=== PATIENT | female | born 1985 | race Caucasian/White ===

== ENCOUNTER 2020-11-17 15:00 | Emergency (ER) | payer MEDICAID, OTHER ==
[2020-11-17 15:25] VITALS: RESP 18
[2020-11-17 16:12] LABS: Basophils # (A) 0.1 k/uL (0-0.2); Basophils % (A) 1 %; Eosinophils % (A) 14 %; HCT 40.4 % (34.0-46.0); HGB 13.1 gm/dL (11.4-16.0); Lymphocytes # (A) 1.9 k/uL (1.0-4.8); Lymphocytes % (A) 28 %; MCH 29.7 pg (25.0-35.0); MCHC 32.3 g/dL (31.0-37.0); MCV 91.9 fL (80.0-100.0); Monocytes # (A) 0.3 k/uL (0-1.0); Monocytes % (A) 5 %; Neutrophils # (A) 3.4 k/uL (1.3-7.7); Neutrophils % (A) 51 %; Platelet Count 304 k/uL (150-450); Poikilocytosis Slight; WBC 6.8 k/uL (3.8-10.6)
[2020-11-17 16:19] LABS: ALT 13 U/L (4-34); AST 19 U/L (14-36); African American GFR (CKD) >90 (>60 ml/min/1.73 sqM); Albumin 3.6 g/dL (3.5-5.0); Alkaline Phosphatase 107 U/L (38-126); Anion Gap 6 mmol/L; Blood Urea Nitrogen 12 mg/dL (7-17); Calcium 8.7 mg/dL (8.4-10.2); Carbon Dioxide 23 mmol/L (22-30); Chloride 108 mmol/L (98-107); Glucose 95 mg/dL (74-99); Non-African American GFR(CKD) >90 (>60 ml/min/1.73 sqM); Potassium 4.1 mmol/L (3.5-5.1); Sodium 137 mmol/L (137-145); Total Bilirubin 0.4 mg/dL (0.2-1.3); Total Protein 6.8 g/dL (6.3-8.2)
[2020-11-17] MEDS ORDERED: HYDROmorphone 1 MG/ML 1 ML SYRINGE IVP STA (17:01)
--- NOTE | 2020-11-17 17:10 | ED ---
General Adult HPI - General Chief complaint: Fall Stated complaint: Back Pain Time Seen by Provider: 11/17/20 15:20 Source: EMS Mode of arrival: EMS Limitations: no limitations - History of Present Illness Initial comments: 35-year-old female with past history of cervical fusion from C3 to C7 who presents emergency department with reported low back pain and inability to feel her lower extremities. Patient states that she fell last night and landed face first. States that she arched her back and since then has had some saddle anesthesia with inability to move her lower extremities. Also reports to lower extremity numbness. States that she has had some chronic numbness in her feet but that the numbness extending up into her calf and thighs is new. She admits to urinary retention. Denies any previous lower back surgeries. Dr. Connor is her surgeon - fushions were completed in 2017 and 2019. Denies fevers or chills. No nausea or vomiting. No chest pain or shortness of breath. No anterior abdominal pain. Denies concern for . No other alleviating, precipitating or modifying factors - Related Data Home Medications Medication Instructions Recorded Confirmed Carvedilol [Coreg] 25 mg PO BID 11/15/15 11/17/20 ALPRAZolam [Xanax] 1 mg PO BID@0900,1600 11/17/20 11/17/20 Atorvastatin [Lipitor] 40 mg PO DAILY 11/17/20 11/17/20 Cetirizine HCl [Zyrtec] 10 mg PO DAILY 11/17/20 11/17/20 FLUoxetine HCL [PROzac] 40 mg PO DAILY 11/17/20 11/17/20 Flovent (Unknown Dose) 1 puff INHALATION RT-BID 11/17/20 11/17/20 Gabapentin 300 mg PO DAILY PRN 11/17/20 11/17/20 Multivitamins, Thera [Multivitamin 1 tab PO BID 11/17/20 11/17/20 (formulary)] amLODIPine [Norvasc] 10 mg PO DAILY 11/17/20 11/17/20 Allergies Allergy/AdvReac Type Severity Reaction Status Date / Time No Known Allergies Allergy Verified 11/17/20 18:24 Review of Systems ROS Statement: Those systems with pertinent positive or pertinent negative responses have been documented in the HPI. ROS Other: All systems not noted in ROS Statement are negative. 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 Absent: scleral icterus, conjunctival injection, periorbital swelling ENT exam: Present: normal exam, mucous membranes moist Neck exam: Present: normal inspection. Absent: tenderness, meningismus, lymphadenopathy Respiratory exam: Present: normal lung sounds bilaterally. Absent: respiratory distress, wheezes, rales, rhonchi, stridor Cardiovascular Exam: Present: regular rate, normal rhythm, normal heart sounds. Absent: systolic murmur, diastolic murmur, rubs, gallop, clicks GI/Abdominal exam: Present: soft, normal bowel sounds. Absent: distended, tenderness, guarding, rebound, rigid Rectal exam: Present: normal inspection Extremities exam: Present: other (No effect against gravity b/l le. Can feel blunt sensation over the heel, lateral and dorsal aspects of the bilateral lower externally is however cannot feel 2 point discrimination. ). Absent: pedal edema, joint swelling Back exam: Present: normal inspection Neurological exam: Present: alert, oriented X3, CN II-XII intact Psychiatric exam: Present: normal affect, normal mood Skin exam: Present: warm, dry, intact, normal color. Absent: rash Course Vital Signs 11/17/20 11/17/20 15:19 19:35 Temperature 98.1 F 97.8 F Pulse Rate 79 71 Respiratory 18 18 Rate Blood Pressure 124/77 105/67 O2 Sat by Pulse 98 97 Oximetry Medical Decision Making - Medical Decision Making Upon arrival patient is placed into room 33. A thorough history and physical exam was performed. Patient admits that she can feel blunt touch however 2 point discrimination is not palpable. Patient will not move her lower extremities or provide any type of effort. Rectal exam is performed and appears intact. CT the patient's cervical, thoracic and lumbar spine is performed. Laboratory studies are reviewed and within normal limits. CT demonstrates multilevel cervical spine fusion no fracture. No significant abnormality seen in the thoracic and lumbar spine. Results are discussed patient. Due to the patient's reported symptoms of possible cauda equina I did recommend transfer to a facility capable of obtaining an MRI. Patient agreed to this,. Called and spoke with Dr. Espinoza at [facility] who accepted transfer. Patient will be sent EMS in stable condition. - Lab Data Result diagrams: 11/17/20 15:58 11/17/20 15:58 Lab Results 11/17/20 11/17/20 Range/Units 15:58 15:58 WBC 6.8 (3.8-10.6) k/uL RBC 4.40 (3.80-5.40) m/uL Hgb 13.1 (11.4-16.0) gm/dL Hct 40.4 (34.0-46.0) % MCV 91.9 (80.0-100.0) fL MCH 29.7 (25.0-35.0) pg MCHC 32.3 (31.0-37.0) g/dL RDW 15.0 (11.5-15.5) % Plt Count 304 (150-450) k/uL MPV 7.0 Neutrophils % 51 % Lymphocytes % 28 % Monocytes % 5 % Eosinophils % 14 % Basophils % 1 % Neutrophils # 3.4 (1.3-7.7) k/uL Lymphocytes # 1.9 (1.0-4.8) k/uL Monocytes # 0.3 (0-1.0) k/uL Eosinophils # 1.0 H (0-0.7) k/uL Basophils # 0.1 (0-0.2) k/uL Poikilocytosis Slight Sodium 137 (137-145) mmol/L Potassium 4.1 (3.5-5.1) mmol/L Chloride 108 H (98-107) mmol/L Carbon Dioxide 23 (22-30) mmol/L Anion Gap 6 mmol/L BUN 12 (7-17) mg/dL Creatinine 0.70 (0.52-1.04) mg/dL Est GFR (CKD-EPI)AfAm >90 (>60 ml/min/1.73 sqM) Est GFR (CKD-EPI)NonAf >90 (>60 ml/min/1.73 sqM) Glucose 95 (74-99) mg/dL Calcium 8.7 (8.4-10.2) mg/dL Total Bilirubin 0.4 (0.2-1.3) mg/dL AST 19 (14-36) U/L ALT 13 (4-34) U/L Alkaline Phosphatase 107 (38-126) U/L Total Protein 6.8 (6.3-8.2) g/dL Albumin 3.6 (3.5-5.0) g/dL Disposition Clinical Impression: Fall, Saddle anesthesia Disposition: OTHER INSTITUTION NOT DEFINED Condition: Stable Is patient prescribed a controlled substance at d/c from ED?: No Referrals: Smitha Tuttle MD [Primary Care Provider] - 1-2 days Time of Disposition: 17:58 - Out of Hospital Transfer - Req. Specs Out of Hospital Transfer - Requested Specifics: Other Emergency Center ([facility])
--- NOTE | 2020-11-17 17:17 | CT ---
EXAMINATION TYPE: CT CervThorLumbar spine wo con DATE OF EXAM: 11/17/2020 COMPARISON: None HISTORY: Inability to ambulate. CT DLP: 2997.6 mGycm Automated exposure control for dose reduction was used. Images obtained from the skull base to S1 vertebra without contrast. There is multilevel posterior fusion surgery and anterior fusion surgery in the cervical spine from C 3 to C7. Cervical vertebra show fairly normal alignment. There is slight widening of the disc space o n the posterior aspect of the C7-T1 disc. There is no compression fracture. Thoracic and lumbar vertebra have fairly normal alignment. There is no compression fracture. There i s posterior endplate spur formation and calcification in the posterior longitudinal ligament at L1 to and T11-12. There is developmentally adequate spinal canal. There is no significant spinal stenosis. There is multilevel laminectomy defect in the mid and lower cervical spine. There is no thoracic par aspinal mass. I see no focal bone destruction. The sacroiliac joints appear intact. IMPRESSION: Multilevel cervical spine fusion surgery. Surgery is a change compared to cervical spine x-ray of . No fracture. There is slight flexion at the cervicothoracic junction with widening of the disc space at C7-T1 that could relate to some ligamentous instability. Comparison with an recent previous exam would be helpf ul. No significant abnormalities seen of the remainder of the thoracic and lumbar spine.
[2020-11-17 19:35] VITALS: BP 105/67; PULSE 71; TEMP 97.8
== END 2020-11-17 19:51 | disposition other institution (70) ==
LOC: EC 15:00
DX: R20.0 Anesthesia of skin (principal); J45.909 Unspecified asthma, uncomplicated; E78.5 Hyperlipidemia, unspecified; I10 Essential (primary) hypertension; Z87.891 Personal history of nicotine dependence; Z98.1 Arthrodesis status
CPT/HCPCS: 99285; 96374; 36415; 80053; 85025; 72128; 72125; 72131; J1170

== ENCOUNTER 2020-12-08 01:14 | Emergency (ER) | payer OTHER ==
[2020-12-08 01:24] VITALS: TEMP 97.8
[2020-12-08] MEDS ORDERED: SODIUM CHLORIDE 0.9% 1,000 ML IV STA (01:50)
[2020-12-08] MEDS ORDERED: MORPHINE SULFATE 4 MG/ML SYRINGE IVP STA (02:00)
[2020-12-08] MEDS ORDERED: CAFFEINE-SODIUM BENZOATE 1,000 MG in SODIUM CHLORIDE 0.9% 1,000 ML IVPB ONE (02:01)
--- NOTE | 2020-12-08 02:02 | ED ---
Headache HPI - General Chief Complaint: Headache Stated Complaint: Headache Time Seen by Provider: 12/08/20 01:47 Mode of arrival: EMS Limitations: no limitations - History of Present Illness Initial Comments: 35-year-old female presents to emergency department with a chief complaint of a headache. Patient reports 2 days ago she had a spinal tap performed at the [facility] for possible meningitis. Patient reports she was then discharged from the hospital and began to experience a headache that became significantly worse whenever she was in a sitting or standing position. States the pain is alleviated when laying flat. She denies any blurry vision, onset we akness or paresthesias. Patient states she had a spinal tap once before and she experienced a similar headache. She denies any nausea vomiting and diarrhea. Denies any chest pain or shortness of breath. - Related Data Home Medications Medication Instructions Recorded Confirmed Carvedilol [Coreg] 25 mg PO BID 11/15/15 11/17/20 ALPRAZolam [Xanax] 1 mg PO BID@0900,1600 11/17/20 11/17/20 Atorvastatin [Lipitor] 40 mg PO DAILY 11/17/20 11/17/20 Cetirizine HCl [Zyrtec] 10 mg PO DAILY 11/17/20 11/17/20 FLUoxetine HCL [PROzac] 40 mg PO DAILY 11/17/20 11/17/20 Flovent (Unknown Dose) 1 puff INHALATION RT-BID 11/17/20 11/17/20 Gabapentin 300 mg PO DAILY PRN 11/17/20 11/17/20 Multivitamins, Thera [Multivitamin 1 tab PO BID 11/17/20 11/17/20 (formulary)] amLODIPine [Norvasc] 10 mg PO DAILY 11/17/20 11/17/20 Allergies Allergy/AdvReac Type Severity Reaction Status Date / Time No Known Allergies Allergy Verified 12/08/20 01:24 Review of Systems ROS Statement: Those systems with pertinent positive or pertinent negative responses have been documented in the HPI. ROS Other: All systems not noted in ROS Statement are negative. 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 Absent: tenderness, lymphadenopathy Respiratory exam: Present: normal lung sounds bilaterally. Absent: respiratory distress, wheezes, rales Cardiovascular Exam: Present: regular rate, normal rhythm, normal heart sounds. Absent: systolic murmur Extremities exam: Present: normal inspection, full ROM, normal capillary refill Back exam: Present: normal inspection, full ROM. Absent: tenderness Neurological exam: Present: alert, oriented X3 Psychiatric exam: Present: normal affect, normal mood Skin exam: Present: warm, dry, intact, normal color Course Vital Signs 12/08/20 12/08/20 01:19 02:24 Temperature 97.8 F Pulse Rate 67 68 Respiratory 15 18 Rate Blood Pressure 120/70 123/78 O2 Sat by Pulse 95 97 Oximetry Medical Decision Making - Medical Decision Making 35-year-old female presents to emergency department with a chief complaint of a headache. On physical examination, no focal deficits. Patient was expressing a spinal headache. Patient was given morphine, IV fluids and caffeine. On reevaluation, she reports improvement in symptoms. Patient will be discharged home with outpatient follow-up. Case discussed with Dr. Fernandez - Lab Data Result diagrams: 12/08/20 01:56 12/08/20 01:56 Lab Results 12/08/20 12/08/20 Range/Units 01:56 01:56 WBC 5.3 (3.8-10.6) k/uL RBC 4.29 (3.80-5.40) m/uL Hgb 12.9 (11.4-16.0) gm/dL Hct 38.5 (34.0-46.0) % MCV 89.6 (80.0-100.0) fL MCH 30.1 (25.0-35.0) pg MCHC 33.6 (31.0-37.0) g/dL RDW 13.3 (11.5-15.5) % Plt Count 317 (150-450) k/uL MPV 6.7 Neutrophils % 42 % Lymphocytes % 31 % Monocytes % 6 % Eosinophils % 18 % Basophils % 1 % Neutrophils # 2.2 (1.3-7.7) k/uL Lymphocytes # 1.7 (1.0-4.8) k/uL Monocytes # 0.3 (0-1.0) k/uL Eosinophils # 0.9 H (0-0.7) k/uL Basophils # 0.1 (0-0.2) k/uL Sodium 137 (137-145) mmol/L Potassium 3.9 (3.5-5.1) mmol/L Chloride 106 (98-107) mmol/L Carbon Dioxide 22 (22-30) mmol/L Anion Gap 9 mmol/L BUN 11 (7-17) mg/dL Creatinine 0.61 (0.52-1.04) mg/dL Est GFR (CKD-EPI)AfAm >90 (>60 ml/min/1.73 sqM) Est GFR (CKD-EPI)NonAf >90 (>60 ml/min/1.73 sqM) Glucose 90 (74-99) mg/dL Calcium 9.3 (8.4-10.2) mg/dL Total Bilirubin 1.0 (0.2-1.3) mg/dL AST 29 (14-36) U/L ALT 20 (4-34) U/L Alkaline Phosphatase 108 (38-126) U/L Total Protein 7.4 (6.3-8.2) g/dL Albumin 3.9 (3.5-5.0) g/dL Disposition Clinical Impression: Spinal headache Disposition: HOME SELF-CARE Condition: Stable Instructions (If sedation given, give patient instructions): Acute Headache (DC) Additional Instructions: Please return to the Emergency Department if symptoms worsen or any other concerns. Is patient prescribed a controlled substance at d/c from ED?: No Referrals: Smitha Tuttle MD [Primary Care Provider] - 1-2 days Time of Disposition: 02:48
[2020-12-08 02:38] LABS: Basophils # (A) 0.1 k/uL (0-0.2); Basophils % (A) 1 %; Eosinophils # (A) 0.9 k/uL (0-0.7); Eosinophils % (A) 18 %; HCT 38.5 % (34.0-46.0); HGB 12.9 gm/dL (11.4-16.0); Lymphocytes # (A) 1.7 k/uL (1.0-4.8); Lymphocytes % (A) 31 %; MCH 30.1 pg (25.0-35.0); MCHC 33.6 g/dL (31.0-37.0); MCV 89.6 fL (80.0-100.0); Mean Platelet Volume 6.7; Monocytes # (A) 0.3 k/uL (0-1.0); Monocytes % (A) 6 %; Neutrophils # (A) 2.2 k/uL (1.3-7.7); Neutrophils % (A) 42 %; Platelet Count 317 k/uL (150-450); RBC 4.29 m/uL (3.80-5.40); RDW 13.3 % (11.5-15.5); WBC 5.3 k/uL (3.8-10.6)
[2020-12-08 02:40] LABS: ALT 20 U/L (4-34); AST 29 U/L (14-36); African American GFR (CKD) >90 (>60 ml/min/1.73 sqM); Albumin 3.9 g/dL (3.5-5.0); Alkaline Phosphatase 108 U/L (38-126); Anion Gap 9 mmol/L; Blood Urea Nitrogen 11 mg/dL (7-17); Calcium 9.3 mg/dL (8.4-10.2); Carbon Dioxide 22 mmol/L (22-30); Chloride 106 mmol/L (98-107); Glucose 90 mg/dL (74-99); Non-African American GFR(CKD) >90 (>60 ml/min/1.73 sqM); Potassium 3.9 mmol/L (3.5-5.1); Sodium 137 mmol/L (137-145); Total Protein 7.4 g/dL (6.3-8.2)
[2020-12-08 02:59] VITALS: RESP 18
[2020-12-08 04:22] VITALS: BP 114/82; PULSE 76
== END 2020-12-08 04:21 | disposition home or self-care (01) ==
LOC: EC 01:14
DX: G97.1 Other reaction to spinal and lumbar puncture (principal); R51.0 Headache with orthostatic component, not elsewhere classified; I10 Essential (primary) hypertension; E78.5 Hyperlipidemia, unspecified; J45.909 Unspecified asthma, uncomplicated; F12.90 Cannabis use, unspecified, uncomplicated; Z87.891 Personal history of nicotine dependence; Z79.51 Long term (current) use of inhaled steroids
CPT/HCPCS: 36415; 80053; 85025; 99284; 96365; 96375; J2270

== ENCOUNTER 2021-01-03 14:55 | Emergency (ER) | payer OTHER ==
--- NOTE | 2021-01-03 16:39 | ED ---
General Adult HPI - General Chief complaint: Psychiatric Symptoms Stated complaint: mental health Time Seen by Provider: 01/03/21 15:00 Source: patient, EMS, RN notes reviewed, old records reviewed Mode of arrival: EMS Limitations: no limitations - History of Present Illness Initial comments: This is a 35-year-old female presents emergency department with past medical history significant for depression and anxiety. Patient also states his conversion disorder and it causes to have pseudoseizures. Patient states she comes in today because she's had a two-week history of increased depression and as of today she started having some suicidal ideations when she was in the shower looking at her razor. Patient states she doesn't think she would do it but obviously symptoms are worsening because she's never even contemplated in the past. - Related Data Home Medications Medication Instructions Recorded Confirmed Carvedilol [Coreg] 25 mg PO BID 11/15/15 01/03/21 ALPRAZolam [Xanax] 1.5 mg PO BID 11/17/20 01/03/21 Atorvastatin [Lipitor] 40 mg PO DAILY 11/17/20 01/03/21 Cetirizine HCl [Zyrtec] 10 mg PO DAILY 11/17/20 01/03/21 FLUoxetine HCL [PROzac] 60 mg PO DAILY 11/17/20 01/03/21 Multivitamins, Thera [Multivitamin 1 tab PO BID 11/17/20 01/03/21 (formulary)] amLODIPine [Norvasc] 10 mg PO DAILY 11/17/20 01/03/21 Albuterol Sulfate [Proair Hfa] 2 puff INHALATION RT-Q4H PRN 01/03/21 01/03/21 Clobetasol 0.05% Scalp Solution 1 applic TOPICAL BID 01/03/21 01/03/21 Diclofenac Sodium Gel [Voltaren 1 gm TOPICAL QID 01/03/21 01/03/21 Gel] Fluticasone Propionate [Flovent 1 puff INHALATION RT-BID 01/03/21 01/03/21 Hfa 220 mcg] Allergies Allergy/AdvReac Type Severity Reaction Status Date / Time No Known Allergies Allergy Verified 12/08/20 01:24 Review of Systems ROS Statement: Those systems with pertinent positive or pertinent negative responses have been documented in the HPI. ROS Other: All systems not noted in ROS Statement are negative. 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 Patient is nontoxic and well- hydrated and is in no acute distress. ENT: Neck is soft and supple. No significant lymphadenopathy is noted. Oropharynx is clear. Moist mucous membranes. Neck has full range of motion without eliciting any pain. There is no thyroid enlargement and no masses were felt. EYES: The sclera were anicteric and conjunctiva were pink and moist. Extraocular movements were intact and pupils were equal round and reactive to light. Eyelids were unremarkable. PULMONARY: Unlabored respirations. Good breath sounds bilaterally. No audible rales rhonchi or wheezing was noted. CARDIOVASCULAR: There is a regular rate and rhythm without any murmurs gallops or rubs. ABDOMEN: Soft and nontender with normal bowel sounds. SKIN: Skin is clear with no lesions or rashes and otherwise unremarkable. NEUROLOGIC: Patient is alert and oriented x3. Cranial nerves II through XII are grossly intact. Motor and sensory are also intact. Normal speech, volume and content. Symmetrical smile. MUSCULOSKELETAL: Normal extremities with adequate strength and full range of motion. No lower extremity swelling or edema. No calf tenderness. LYMPHATICS: No significant lymphadenopathy is noted PSYCHIATRIC: Patient states she is having suicidal thoughts. Limitations: no limitations Course Vital Signs 01/03/21 14:58 Temperature 98.3 F Pulse Rate 100 Respiratory 20 Rate Blood Pressure 138/104 O2 Sat by Pulse 98 Oximetry Medical Decision Making - Medical Decision Making Patient states she had a pseudoseizure while in the room and hurt her right arm and right hip. Patient's x-ray of the humerus shows no acute abnormality. Patient's x-ray of the right hip and pelvis showed no acute abnormalities. EPS evaluated the patient and gave the patient a safety plan and the patient was in agreement with the plan and she will be discharged home to follow-up with the plan. - Lab Data Lab Results 01/03/21 Range/Units 17:30 Urine Opiates Screen Not Detected (NotDetected) Ur Oxycodone Screen Detected H (NotDetected) Urine Methadone Screen Not Detected (NotDetected) Ur Propoxyphene Screen Not Detected (NotDetected) Ur Barbiturates Screen Not Detected (NotDetected) U Tricyclic Antidepress Not Detected (NotDetected) Ur Phencyclidine Scrn Not Detected (NotDetected) Ur Amphetamines Screen Not Detected (NotDetected) U Methamphetamines Scrn Not Detected (NotDetected) U Benzodiazepines Scrn Detected H (NotDetected) Urine Cocaine Screen Not Detected (NotDetected) U Marijuana (THC) Screen Detected H (NotDetected) Disposition Clinical Impression: Depression, Contusion of shoulder, Contusion, hip Disposition: HOME SELF-CARE Is patient prescribed a controlled substance at d/c from ED?: No Referrals: Smitha Tuttle MD [Primary Care Provider] - 1-2 days Time of Disposition: 18:13
[2021-01-03] MEDS ORDERED: ACETAMINOPHEN TAB 500 MG TAB PO STA (17:50)
--- NOTE | 2021-01-03 17:50 | XR ---
EXAMINATION TYPE: XR humerus RT DATE OF EXAM: 01/03/2021 COMPARISON: NONE HISTORY: 35 years Female. STUDY INDICATION GIVEN: Pain . TECHNIQUE: Frontal lateral radiographs of the right humerus IMPRESSION: No acute fracture or dislocation seen. Mild right AC joint OA. Normal-appearing glenohumeral joint and elbow joint. The included right hemithorax is unremarkable.
--- NOTE | 2021-01-03 17:53 | XR ---
EXAMINATION TYPE: XR Hip RT and AP Pelvis DATE OF EXAM: 01/03/2021 COMPARISON: NONE HISTORY: 35 years Female. STUDY INDICATION GIVEN: Pain . TECHNIQUE: Single frontal radiographs of the pelvis and 2 radiographs of the right hip joint. IMPRESSION: No acute fracture or dislocation seen. Symmetric appearing sacroiliac joints and hip joints no significant joint abnormality. Pubic symphysi s is normal in width. The lower lumbar spine is unremarkable. There is a slight asymmetric appearance to the bilateral femoral heads with the right femoral head ap pearing slightly smaller than the left and this could be related to patient's positioning. No significant abnormalities seen in the lower abdomen or pelvis.
[2021-01-03 18:10] LABS: Urn Cannabinoid Scrn Detected (NotDetected)
[2021-01-03 18:11] LABS: Amphetamine Screen,Urine Not Detected (NotDetected); Barbiturate Screen,Urine Not Detected (NotDetected); Benzodiazepines Screen,Urine Detected (NotDetected); Cocaine Screen,Urine Not Detected (NotDetected); Methadone Screen, Urine Not Detected (NotDetected); Opiate Screen,Urine Not Detected (NotDetected); Oxycodone Screen, Urine Detected (NotDetected); Phencyclidine Screen,Urine Not Detected (NotDetected); Tricyclic Antidepressant,Urine Not Detected (NotDetected)
[2021-01-03 18:41] VITALS: BP 130/78; PULSE 81; RESP 16; TEMP 98.6
== END 2021-01-03 18:41 | disposition home or self-care (01) ==
LOC: EC 14:55
DX: F32.9 Major depressive disorder, single episode, unspecified (principal); S40.011A Contusion of right shoulder, initial encounter; S70.01XA Contusion of right hip, initial encounter; I10 Essential (primary) hypertension; E78.5 Hyperlipidemia, unspecified; J45.909 Unspecified asthma, uncomplicated; F12.90 Cannabis use, unspecified, uncomplicated; Z87.891 Personal history of nicotine dependence; Z79.51 Long term (current) use of inhaled steroids; Z79.899 Other long term (current) drug therapy; X58.XXXA Exposure to other specified factors, initial encounter
CPT/HCPCS: 73502; 80306; 82075; 99284